=== PATIENT | male | born 1970 | race Caucasian/White ===

== ENCOUNTER 2020-04-23 18:30 | Emergency (ER) | payer OTHER ==
[~2020-04-23] VITALS: Ht 167.6 cm; Wt 90.7 kg
[2020-04-23 18:32] VITALS: Ht 167.6 cm; Wt 90.7 kg
[2020-04-23 19:13] VITALS: BP 143/91
== END 2020-04-23 19:13 | disposition home or self-care (01) ==
LOC: ED 18:30
DX: Z02.89 Encounter for other administrative examinations (principal)

== ENCOUNTER 2020-06-05 20:10 | Emergency (ER) | payer MEDICAID ==
[~2020-06-05] VITALS: Ht 162.6 cm; Wt 104.8 kg
[2020-06-05 20:25] VITALS: BP 167/103; Ht 162.6 cm; Wt 104.8 kg
== END 2020-06-05 21:25 | disposition home or self-care (01) ==
LOC: ED 20:10
DX: J03.90 Acute tonsillitis, unspecified (principal); S63.614A Unspecified sprain of right ring finger, initial encounter; W22.8XXA Striking against or struck by other objects, initial encounter; Y93.89 Activity, other specified; Y92.89 Other specified places as the place of occurrence of the external cause; Y99.8 Other external cause status
CPT/HCPCS: J2930